=== PATIENT | female | born 1990 | race Caucasian/White ===

== ENCOUNTER → 2023-02-12 15:51 | Outpatient (CLI) | payer OTHER, SELFPAY ==
[2023-02-14 09:37] LABS: HSV 2 IgG, Type Spec <0.91 index (0.00-0.90)
[2023-02-14 12:37] LABS: HBsAg Screen Negative (Negative); HIV Screen 4th Generation wRfx Non Reactive (Non Reactive); Hep A Ab, IGM Negative (Negative); Hep B Core Ab, IgM Negative (Negative); Rapid Plasma Reagin Ab Titer Non Reactive (NonRea<1:1)
[2023-02-21 21:08] LABS: HCV Ab 0 s/co rat (0.0-0.9)
== END ==
PROVIDERS: PCP Nurse Practitioner Family; Visit Provider Obstetrics & Gynecology
DX: Z72.51 High risk heterosexual behavior (principal); Z20.2 Contact with and (suspected) exposure to infections with a predominantly sexual mode of transmission; Z11.4 Encounter for screening for human immunodeficiency virus [HIV]
CPT/HCPCS: 36415; 80074; 86593; 86695; 86703; 86790; G0432